=== PATIENT | female | born 1945 | race African-American/Black ===

== ENCOUNTER 2017-08-14 12:11 | Emergency (ER) | payer OTHER ==
[~2017-08-14] VITALS: Ht 157.5 cm; Wt 85.1 kg
[~2017-08-14 12:11] MED LIST: BUSPAR5 MG PO; CLONAZEPAM0.5 MG PO; EFFEXOR37.5 MG PO; KLONOPIN0.5 M1 PO; NORVASC5 MG PO; RANITIDINE HCL300 MG PO; VITAMIN B-1250 MC1 PO
[2017-08-14 14:31] VITALS: BP 136/70
== END 2017-08-14 14:47 | disposition home or self-care (01) ==
LOC: EME 12:11
DX: I10 Essential (primary) hypertension (principal); R51 Headache; R42 Dizziness and giddiness
CPT/HCPCS: 99281; 99284

== ENCOUNTER 2017-10-10 16:06 | Emergency (ER) | payer OTHER ==
[~2017-10-10] VITALS: Ht 160 cm; Wt 83.8 kg
[2017-10-10 16:27] LABS: HEMATOCRIT 39.6 % (36.0-46.0); HEMOGLOBIN 13.3 G/DL (11.9-15.5); MCHC 33.6 G/DL (30.0-36.0); MCV 89.2 FL (83-99); PLATELET COUNT 236 K/uL (156-360); RBC DIS.WIDTH-CV 14.1 % (11.8-14.6); RBC DIS.WIDTH-SD 45.7 % (39-53); RED BLOOD COUNT 4.44 M/uL (3.80-5.20); WHITE BLOOD COUNT 5.7 K/uL (4.1-10.2)
[2017-10-10 16:38] LABS: CHLORIDE 111 mEq/L (99-109); POTASSIUM 3.9 mEq/L (3.7-5.4); SODIUM 143 mEq/L (136-147)
[2017-10-10 16:39] LABS: GLUCOSE 110 mg/dL (70-99)
[2017-10-10 16:43] LABS: CREATININE 0.9 mg/dL (0.6-1.3); GFR ESTIMATE (CALCULATED) > 59 mL/min/
[2017-10-10 16:44] LABS: UREA NITROGEN (BUN) 13 mg/dL (9-23)
[2017-10-10 18:58] LABS: TROP-I INTERPRETATION NEGATIVE; TROPONIN-I < 0.01 ng/mL (0.0-0.30)
[2017-10-10 20:16] LABS: TROP-I INTERPRETATION NEGATIVE; TROPONIN-I < 0.01 ng/mL (0.0-0.30)
[2017-10-10 20:51] VITALS: BP 145/71
== END 2017-10-10 20:53 | disposition home or self-care (01) ==
LOC: EME 16:06
PROVIDERS: Physician Assistant Medical
DX: R00.2 Palpitations (principal); R06.02 Shortness of breath; I10 Essential (primary) hypertension; F32.9 Major depressive disorder, single episode, unspecified; F41.9 Anxiety disorder, unspecified; Z88.8 Allergy status to other drugs, medicaments and biological substances
CPT/HCPCS: 71046; 80048; 84484; 85027; 93005; 99281; 99284

== ENCOUNTER 2018-01-26 14:25 | Emergency (ER) | payer OTHER ==
[~2018-01-26] VITALS: Ht 160 cm; Wt 84.0 kg
[2018-01-26 15:39] VITALS: BP 159/81
== END 2018-01-26 15:40 | disposition home or self-care (01) ==
LOC: EME 14:25
DX: Z76.0 Encounter for issue of repeat prescription (principal); I10 Essential (primary) hypertension; F41.9 Anxiety disorder, unspecified; Z88.8 Allergy status to other drugs, medicaments and biological substances
CPT/HCPCS: 99281; 99283

== ENCOUNTER 2018-02-17 14:29 | Emergency (ER) | payer OTHER ==
[~2018-02-17] VITALS: Ht 162.6 cm; Wt 84.4 kg
[2018-02-17] MEDS ORDERED: XANAX0.5 MG PO (17:11)
[2018-02-17 17:26] VITALS: BP 185/84
== END 2018-02-17 17:27 | disposition home or self-care (01) ==
LOC: EME 14:29
DX: F41.9 Anxiety disorder, unspecified (principal); Z88.8 Allergy status to other drugs, medicaments and biological substances
CPT/HCPCS: 99281; 99284